=== PATIENT | female | born 1980 | race American Indian/Alaskan Native ===

== ENCOUNTER 2016-10-08 06:57 | Day surgery (SDC) | payer MEDICAID ==
--- NOTE | 2016-10-07 17:09 | History and Physical Report ---
History of Present Illness Date of examination: 10/04/16 Chief complaint: Desires bilateral salpingectomy for sterilization History of present illness: Past History : 17 Term Births: 6 Premature Births: 0 Living Children: 6 Para: 6 Aborta: 10 Elect. Ab: 10 Spont. Ab: 0 Ectopics: 0 # 1 Delivery date: 2002 Weeks Gestation: FT labor: no Delivery type: Infant Sex: Female weight: 6-7 # 2 Delivery date: 2006 Weeks Gestation: FT labor: yes Delivery type: Sex: Male weight: 6-12 Comments: hospitalized x2 for ptl # 3 Delivery date: 01/17/2011 Weeks Gestation: 37 Delivery type: Vaginal Anesthesia type: none Delivery location: [facility] Sex: female weight: 6.31 Name: roro Comments: none # 4 Delivery date: 05/13/2014 Weeks Gestation: 39 Delivery type: Vaginal Hours of labor: 4 Anesthesia type: none Delivery location: [facility] Infant Sex: male weight: 6.25 # 5 Delivery date: 03/10/2015 Weeks Gestation: 37 Delivery type: Vaginal Anesthesia type: none Delivery location: [facility] Sex: female weight: 6.25 Comments: Precipitous delivery within 20 minutes of arrival # 6 Delivery date: 08/17/2016 Weeks Gestation: 38+4 Delivery type: Vaginal Hours of labor: 1 Anesthesia type: none Delivery location: [facility] Sex: male weight: 6.31 Comments: del <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 of genital herpes: yes Partner hx. of genital herpes: no Hx of STD: chlamydia, hsv II Active Medications: IBUPROFEN 800 MG TABS (IBUPROFEN) 1 tab po q 8hr prn OXYCODONE-ACETAMINOPHEN 5-325 MG TABS (OXYCODONE-ACETAMINOPHEN) 1-2po q6h prn Current Allergies (reviewed today): No known allergies Past Medical History: Reviewed history from 10/12/2010 and no changes required: abnormal TFT--hyperthyroidism cystocele abd pap--2001 with colpo wnl std hx--hsv II, hpv on pap smear Past Surgical History: Reviewed history from 10/01/2013 and no changes required: negative Social History: Reviewed history from 10/12/2010 and no changes required: Patient is single no etoh, no illicit drug use, no tobacco use Smoking History: Patient has never smoked. Risk Factors: Smoked Tobacco Use: Never smoker Alcohol use: yes Type: social PAP Smear History: Date of Last PAP Smear: 02/14/2016 Previous Tobacco Use: Signed On 08/12/2014 Smoked Tobacco Use: Never smoker Year started: occ Smokeless Tobacco Use: Never Counseled to quit/cut down: yes Drug use: no HIV high-risk behavior: low risk Previous Alcohol Use: Signed On 08/12/2014 Alcohol use: no Dietary Counseling: pn yes PAP Smear History: Date of Last PAP Smear: 02/14/2016 Review of Systems General Denies fever, chills, sweats, anorexia, fatigue, weakness, malaise, weight loss and sleep disorder. Denies vaginal discharge, incontinence, dysuria, hematuria, urinary frequency, amenorrhea, menorrhagia, abnormal vaginal bleeding, pelvic pain, genital sores, decreased libido, painful periods, painful sex, urinary urgency, hot flashes, vaginal dryness, vaginal itching and vaginal odor. CV Denies chest pains, palpitations, syncope, dyspnea on exertion, orthopnea, PND and peripheral edema. Resp Denies cough, dyspnea at rest, excessive sputum, hemoptysis, wheezing and pleurisy. GI Denies nausea, vomiting, diarrhea, constipation, change in bowel habits, abdominal pain, melena, hematochezia, jaundice, gas/bloating, indigestion/ heartburn, dysphagia and odynophagia. Endo Denies cold intolerance, heat intolerance, polydipsia, polyphagia, polyuria and unusual weight change. Breast Denies left breast lump, right breast lump, nipple discharge, bloody discharge from nipple, breast pain, abnormal mammogram and breast enlargement. MS Denies back pain, joint pain, joint swelling, muscle cramps, muscle weakness, stiffness, arthritis, sciatica, restless legs, leg pain at night and leg pain with exertion. Derm Denies rash, itching, dryness and suspicious lesions. Neuro Denies paralysis, paresthesias, headache, seizures, tremors, vertigo, transient blindness, frequent falls, frequent headaches and difficulty walking. Psych Denies depression, anxiety, irritability and mood swings. Eyes Denies blurring, diplopia, irritation, discharge, vision loss, eye pain and photophobia. ENT Denies earache, ear discharge, tinnitus, decreased hearing, nasal congestion, nosebleeds, sore throat and hoarseness. Allergy Denies urticaria, allergic rash, hay fever and recurrent infections. Heme Denies abnormal bruising, bleeding and enlarged lymph nodes. Physical Exam Appearance: well developed, well nourished, no acute distress Other Exams Lungs: no rales, rhonchi, or wheezes Heart: S1, S2, no murmur, rub, or gallop Impression & Recommendations: Problem # 1: Sterilization ([id number]) Risks of regret emphasized. Permanent and irreversible condition explained to patient. Pt verbalized understanding. Consent reviewed and signed. Pre- operative instructions sheets given. The risks and alternatives to this surgery were reviewed with the patient. Infection precautions reviewed, pt to call for any signs or symptoms of infection. Patient given ample opportunity to have all her questions answered before signing informed consent. Patient informed of possible bleeding. 1%failure rate emphasized. She desires to proceed with bilateral salpingectomy for sterilization Consent reviewed and signed . Possible laparoscopy or laparotomy explained to patient. She was informed of possible bleeding, infection, injury to bowel, bladder, ureters or other adjacent organs. The patient was instructed/informed the following: The normal length of hospital stay for this procedure. Nothing to eat or drink after midnight the evening prior to surgery. Clear liquids the day before surgery. Fleets enema the day prior to surgery. Pre-op instruction sheets given. Wound care instructions given. Infection precautions reviewed, patient to call for any signs or symptoms of infection. The usual discomforts associated with this procedure were detailed. Proper use of pain medicines was reviewed. Patient was given ample opportunity to have all her questions answered before signing informed consent. Medications Added to Medication List This Visit: 1) Ibuprofen 800 Mg Tabs (Ibuprofen) .... 1 tab po q 8hr prn 2) Oxycodone-acetaminophen 5-325 Mg Tabs (Oxycodone-acetaminophen) .... 1-2po q6h prn Prescriptions: IBUPROFEN 800 MG TABS (IBUPROFEN) 1 tab po q 8hr prn #30 x 1 Entered and Authorized by: Mkiala Bishop MD Method used: Print then Give to Patient RxID: [id number] OXYCODONE-ACETAMINOPHEN 5-325 MG TABS (OXYCODONE-ACETAMINOPHEN) 1-2po q6h prn # 30 x 0 Entered and Authorized by: Mikala Bishop MD Method used: Print then Give to Patient RxID: [id number] Medications and Allergies Allergies Allergy/AdvReac Type Severity Reaction Status Date / Time No Known Allergies Allergy Verified 10/04/16 13:20 Home Medications Medication Instructions Recorded Confirmed Last Taken Type No Known Home Medications [No 10/04/16 10/04/16 Unknown History Reported Home Medications] Active Meds: Active Medications Cefazolin Sodium (Ancef/Sterile Water 2 Gm/20 Ml) 20 mls @ 80 mls/hr IV PREOP NR PRN Reason: Protocol Stop: 10/08/16 23:59 Assessment and Plan - Patient Problems (1) Sterilization Status: Acute
[~2016-10-08 06:57] MED LIST: ANCEF/STERILE WATER 2 GM/20 ML 20 ML IV NR
[2016-10-08] MEDS ORDERED: LACTATED RINGERS 1,000 ML ONE ×2 (07:06→09:24)
[2016-10-08] MEDS ORDERED: DIPRIVAN 10 MG/ML IV ONE (07:10)
--- NOTE | 2016-10-08 07:10 | Anesthesia Consultation ---
Anesthesia Consult and Med Hx Date of service: 10/08/16 - Airway Anesthetic Teeth Evaluation: Good ROM Head & Neck: Adequate Mental/Hyoid Distance: Adequate Mallampati Class: Class II Intubation Access Assessment: Probably Good - Pulmonary Exam CTA: Yes - Cardiac Exam Cardiac Exam: RRR - Pre-Operative Health Status ASA Pre-Surgery Classification: ASA1 Proposed Anesthetic Plan: General - Pulmonary Hx Smoking: Yes (former) Hx Asthma: No COPD: No Hx Pneumonia: No - Cardiovascular System Hx Hypertension: No - Central Nervous System Hx Seizures: No Hx Psychiatric Problems: No - Endocrine Hx Renal Disease: No Hx End Stage Renal Disease: No Hx Hypothyroidism: No Hx Hyperthyroidism: No - Hematic Hx Anemia: No Hx Sickle Cell Disease: No - Other Systems Hx Alcohol Use: Yes (occas) Hx Cancer: No
[2016-10-08] MEDS ORDERED: DILAUDID ONE (07:11)
[2016-10-08] MEDS ORDERED: NORCO 5/325 PO PRN (07:14)
[2016-10-08] MEDS ORDERED: ZOFRAN IV PRN (07:14)
--- NOTE | 2016-10-08 07:14 | Anesthesia Day of Surgery ---
Anesthesia Day of Surgery - Day of Surgery Patient Examined: Yes Patient H&P Reviewed: Yes Patient is NPO: Yes
[2016-10-08] MEDS ORDERED: XYLOCAINE MPF 2% ONE (07:15)
[2016-10-08] MEDS ORDERED: ZEMURON IV ONE (07:15)
[2016-10-08 07:42] LABS: Hematocrit 44.2 % (30.3-42.9); Hemoglobin 14.5 gm/dl (10.1-14.3)
[2016-10-08] MEDS ORDERED: VERSED IV NR (08:00)
[2016-10-08] MEDS ORDERED: LACTATED RINGERS 1,000 ML IV SCH (08:00)
[2016-10-08] MEDS ORDERED: PEPCID PO NR (08:00)
[2016-10-08] MEDS ORDERED: ZOFRAN ONE (08:58)
[2016-10-08] MEDS ORDERED: ROBINUL ONE (08:58)
[2016-10-08] MEDS ORDERED: TORADOL ONE (08:58)
[2016-10-08] MEDS ORDERED: BLOXIVERZ ONE (08:58)
[2016-10-08] MEDS ORDERED: NACL 0.9% IR ONE (09:12)
[2016-10-08] MEDS ORDERED: MARCAINE 0.5% INFILTRATI ONE (09:12)
--- NOTE | 2016-10-08 09:49 | Operative Report ---
Operative Report Operative Report: Date of procedure: 10/08/2016 Pre-operative diagnosis: Desires sterilization Post-operative diagnosis: Desires sterilization Procedure name(s): Laparoscopic bilateral salpingectomy for sterilization Surgeon: Mikala Bishop MD Wellness Spa Manager: [] Anesthesia: General Findings: Grossly normal uterus tubes and ovaries. Anesthesiologist: Dr. Nicolasa Anderson Procedure: After risks, benefits, complications, consequences, and alternatives for this procedure discussed the patient, she voiced understanding and desired to proceed, she is taken to the OR where general anesthesia was induced. She was placed in the dorsolithotomy position. Exam under anesthesia revealed normal pelvis. She was then prepped and draped in the usual sterile fashion. Timeout was performed. The bladder was drained of approximately 500 mL of clear yellow urine. A bivalve speculum was placed in the vagina. The anterior lip of the cervix was grasped with a single-tooth tenaculum. The uterus was sounded to approximately 9 cm. The cervix was progressively dilated to allow the Sargis uterine manipulator. Tenaculum and speculum were removed. Sterile gloves were placed, and attention was turned to the abdomen. A 5 mm supraumbilical incision was made. A 5 mm Optiview trocar was introduced through this incision with scope and camera attached under direct visualization. No bowel, bladder, ureteral, or major vascular injury was noted. The abdomen was insufflated, and patient was placed in steep Trendelenburg position. Again no bowel, bladder, ureteral or major vascular injury was noted. An incision was made approximately 2 cm superior to symphysis pubis in the midline. An 8 mm trochar was placed through this incision under direct visualization. Again no bowel, bladder, ureteral or major vascular injury was noted. The uterus was elevated and using the LigaSure device bilateral salpingectomy was performed. Specimens were sent to pathology as permanent and separate containers. Hemostasis was noted. The pelvis was inspected and again no bowel, bladder, ureteral or major vascular injury was noted. The lower abdominal trochar was removed under direct visualization. Hemostasis was noted. The abdomen was desufflated. The supraumbilical trocar was removed. The incisions were reapproximated using 4-0 Vicryl in a subcuticular manner. The incisions were infused with half percent Marcaine without epinephrine in a subcuticular manner. Hemostasis was noted. The Sargis uterine manipulator was removed, no bleeding from the vagina was noted the procedure was ended. The patient tolerated the procedure well and was taken to recovery room in stable condition.
--- NOTE | 2016-10-08 09:54 | Discharge Summary ---
Providers - Providers Date of discharge: 10/08/16 Attending physician: EMANUEL SLATER Primary care physician: EMANUEL SLATER Hospitalization Reason for admission: sterilization Condition: Good Procedures: Laparoscopic bilateral salpingectomy for sterilization Hospital course: She was admitted for bilateral salpingectomy for sterilization. Procedure was unremarkable. She was taken to recovery room. The procedure was explained to the patient questions were answered. She voiced understanding Disposition: DISCHARGED TO HOME OR SELFCARE - Discharge Diagnoses (1) Sterilization Status: Acute Core Measure Documentation - Palliative Care Palliative Care/ Comfort Measures: Not Applicable - Core Measures Any of the following diagnoses?: none Exam - Constitutional Vitals: Temp Pulse Resp BP Pulse Ox 99.7 F H 100 H 20 135/91 99 10/08/16 07:48 10/08/16 07:48 10/08/16 07:48 10/08/16 07:48 10/08/16 07:48 General appearance: Present: no acute distress - Respiratory Respiratory effort: normal - Cardiovascular Rhythm: regular - Extremities Extremities: no ischemia, No edema - Psychiatric Psychiatric: appropriate mood/affect Plan Activity: advance as tolerated (no sex for 1 week) Weight Bearing Status: Weight Bear as Tolerated Diet: regular Wound: open to air, keep clean and dry (clean incisions with water 3 times a day.) Special Instructions: no heavy lifting Follow up with: EMANUEL SLATER MD [Primary Care Provider] - (As scheduled)
[2016-10-08] MEDS: DILAUDID IV PRN ×2 (10:08→10:25)
--- NOTE | 2016-10-08 10:09 | Post Anesthesia Evaluation ---
- Post Anesthesia Evaluation Patient Participated: Yes Airway Patent: Yes Stable Respiratory Function: Yes Nausea/Vomiting: No Temp > 96.8F: Yes Pain Manageable: Yes Adequeate Hydration: Yes Anesthesia Complications: No Block Receding Appropriately: Not Applicable Patient on Ventilator: No
[2016-10-08 11:19] VITALS: BP 147/84
== END 2016-10-08 11:35 | disposition home or self-care (01) ==
LOC: OR 06:57
PROVIDERS: ATTEND Obstetrics & Gynecology
DX: Z30.2 Encounter for sterilization (principal); N83.8 Other noninflammatory disorders of ovary, fallopian tube and broad ligament; Z72.89 Other problems related to lifestyle; Z87.891 Personal history of nicotine dependence; Z86.39 Personal history of other endocrine, nutritional and metabolic disease
CPT/HCPCS: 36415; 58661; 81025; 84443; 85014; 85018; 85049; 86850; 86900; 86901; 88302; J0690; J1170; J1885; J2250; J2405; J2704; J2710; J7120